=== PATIENT | female | born 1960 | race African-American/Black ===

== ENCOUNTER 2019-09-19 01:08 | Inpatient (IN) | payer MEDICARE ==
[~2019-09-19] VITALS: Ht 167.6 cm; Wt 105.3 kg
[2019-09-19] MEDS ORDERED: SODIUM CHLORIDE 0.9% 1,000 ML IV ONE (01:11)
[2019-09-19] MEDS ORDERED: NALOXONE HCL 0.4 MG/ML 1ML VIAL IV PRN (01:15)
[2019-09-19 01:29] LABS: BASOPHILS % 0.5 % (0.0-2.0); EOSINOPHILS % 0.1 % (0.0-5.0); HEMATOCRIT. 46.4 % (36.0-48.0); HEMOGLOBIN. 15.5 g/dL (12.0-16.0); LYMPHOCYTES % 13.7 % (20.0-50.0); MEAN CORPUSCULAR HEMOGLOBIN 32.8 pg (28.0-32.0); MEAN CORPUSCULAR VOLUME 98.5 fL (81.0-99.0); MEAN PLATELET VOLUME 8.5 fl (7.4-10.4); MONOCYTES % 8.3 % (2.0-8.0); NEUTROPHILS % 77.4 % (40.0-76.0); PLATELET 221 x1000/uL (130-400); RED BLOOD CELL COUNT 4.71 mill/uL (4.2-5.4); RED CELL DISTRIBUTION WIDTH 13.6 % (11.6-14.6)
[2019-09-19] MEDS ORDERED: SODIUM CHLORIDE 0.9% 1000ML BAG (SEPSIS BOLUS) IV ONE (01:45)
[2019-09-19] MEDS ORDERED: CALCIUM CHLORIDE 1GM/10ML SYR IV ONE (01:45)
[2019-09-19] MEDS ORDERED: LACTULOSE 20G/30ML UDC PO NR (01:45)
[2019-09-19 01:58] LABS: CLARITY URINE CLOUDY (CLEAR); COLOR URINE DARK YELLOW (YELLOW); KETONES URINE TRACE (NEGATIVE); LEUKOCYTE ESTERASE URINE NEGATIVE (NEGATIVE); NITRITE URINE NEGATIVE (NEGATIVE); OCCULT BLOOD URINE NEGATIVE (NEGATIVE); PROTEIN URINE TRACE (NEGATIVE); SPECIFIC GRAVITY URINE 1.025 (1.005-1.030); UROBILINOGEN URINE 0.2 E.U./dL (0.2-1.0)
[2019-09-19 02:03] LABS: CHLORIDE 103 mEq/L (98-107)
[2019-09-19 02:08] LABS: ETHANOL BLOOD < 10 mg/dL
[2019-09-19] MEDS ORDERED: NALOXONE HCL 1 MG/ML 2ML VIAL IV ONE ×2 (02:15→03:30)
[2019-09-19 02:23] LABS: *AMPHETAMINES SCREEN URINE NEGATIVE (NEGATIVE); *BARBITURATES SCREEN URINE NEGATIVE (NEGATIVE); *BENZODIAZEPINES SCREEN URINE NEGATIVE (NEGATIVE); *COCAINE SCREEN URINE NEGATIVE (NEGATIVE)
[2019-09-19 02:24] LABS: CANNABINOID URINE SCREEN NEGATIVE (NEGATIVE); METHADONE URINE SCREEN NEGATIVE (NEGATIVE); PHENCYCLIDINE URINE SCREEN NEGATIVE (NEGATIVE)
[2019-09-19] MEDS ORDERED: VANCOMYCIN 1 G PREMIX 200 ML IV NR (02:45)
[2019-09-19] MEDS ORDERED: PIPERACILLIN/TAZOBACTAM 3.375GM/50ML PREMIX IV ONE (02:45)
[2019-09-19] MEDS ORDERED: ASPIRIN 325MG EC TABLET PO NR (02:45)
[2019-09-19] MEDS ORDERED: SODIUM CHLORIDE 0.9% IV PRN ×2 (02:45→02:50)
[2019-09-19] MEDS ORDERED: NALOXONE IV PRN ×2 (02:45→02:50)
[2019-09-19] MEDS ORDERED: PIPERACILLIN/TAZ 2.25G PREMIX 50 ML IV NR (03:00)
[2019-09-19 03:49] LABS: CREATINE KINASE 6230 IU/L (26-192)
[2019-09-19] MEDS ORDERED: SODIUM CHLORIDE 0.9% 1,000 ML IV SCH ×2 (15:45→19:00)
[2019-09-19] MEDS ORDERED: ONDANSETRON HCL 4MG/2ML INJ IV PRN (15:45)
[2019-09-19 16:50] LABS: OPIATES URINE SCREEN PRESUMTIVE POSITIVE (NEGATIVE)
[2019-09-19 20:20] LABS: BASOPHILS % 0.4 % (0.0-2.0); EOSINOPHILS % 0.4 % (0.0-5.0); HEMATOCRIT. 41.5 % (36.0-48.0); HEMOGLOBIN. 13.9 g/dL (12.0-16.0); LYMPHOCYTES % 10.3 % (20.0-50.0); MEAN CORPUSCULAR HEMOGLOBIN 32.9 pg (28.0-32.0); MEAN CORPUSCULAR VOLUME 98.4 fL (81.0-99.0); MEAN PLATELET VOLUME 8.6 fl (7.4-10.4); MONOCYTES % 8.5 % (2.0-8.0); NEUTROPHILS % 80.4 % (40.0-76.0); PLATELET 171 x1000/uL (130-400); RED BLOOD CELL COUNT 4.22 mill/uL (4.2-5.4); RED CELL DISTRIBUTION WIDTH 13.7 % (11.6-14.6)
[2019-09-19 20:22] LABS: CHLORIDE 116 mEq/L (98-107)
[2019-09-19 20:28] LABS: PHOSPHORUS 1.5 mg/dL (2.5-4.9)
[2019-09-19 20:57] LABS: CREATINE KINASE 4847 IU/L (26-192)
[2019-09-19] MEDS: DEXT 5%/0.45% NACL KCL 20MEQ/L 1,000 ML IV SCH (23:20)
[2019-09-20] VITALS (12 sets, daily range): BP systolic 133–159; BP diastolic 68–94
[2019-09-20 04:48] LABS: BASOPHILS % 0.4 % (0.0-2.0); EOSINOPHILS % 0.7 % (0.0-5.0); HEMATOCRIT. 39.2 % (36.0-48.0); HEMOGLOBIN. 13.3 g/dL (12.0-16.0); LYMPHOCYTES % 18.1 % (20.0-50.0); MEAN CORPUSCULAR HEMOGLOBIN 33.2 pg (28.0-32.0); MEAN CORPUSCULAR VOLUME 97.9 fL (81.0-99.0); MEAN PLATELET VOLUME 8.8 fl (7.4-10.4); MONOCYTES % 6.8 % (2.0-8.0); PLATELET 168 x1000/uL (130-400); RED BLOOD CELL COUNT 4.01 mill/uL (4.2-5.4); RED CELL DISTRIBUTION WIDTH 13.6 % (11.6-14.6)
[2019-09-20 04:54] LABS: CHLORIDE 117 mEq/L (98-107)
[2019-09-20 05:00] LABS: PHOSPHORUS 1.3 mg/dL (2.5-4.9)
[2019-09-20 05:14] LABS: CREATINE KINASE 3478 IU/L (26-192)
[2019-09-20] MEDS: ACETAMINOPHEN 325MG TABLET PO PRN ×2 (10:47→18:55)
[2019-09-20] MEDS: DEXT 5%/0.45% NACL KCL 20MEQ/L 1,000 ML IV SCH ×2 (10:48→15:59)
[2019-09-20 12:43] LABS: HEPATITIS B SURFACE ANTIGEN NEGATIVE
[2019-09-20] MEDS ORDERED: POTASSIUM PHOS,M-BASIC-D-BASIC 20 MMOL in DEXT 5% WATER 243.3333 ML IV NR (13:00)
[2019-09-20 13:10] LABS: HEPATITIS A AB IGM NEGATIVE (NEGATIVE)
[2019-09-20] MEDS: CLONIDINE 0.1MG TABLET PO PRN (19:08)
[2019-09-20] MEDS: AMLODIPINE 10MG TABLET PO SCH (20:18)
[2019-09-20] MEDS ORDERED: HYDRALAZINE 20MG/ML VIAL IV PRN (22:30)
[2019-09-21] VITALS (11 sets, daily range): BP systolic 133–164; BP diastolic 78–104
[2019-09-21] MEDS: CLONIDINE 0.1MG TABLET PO PRN (02:48)
[2019-09-21] MEDS: DEXT 5%/0.45% NACL KCL 20MEQ/L 1,000 ML IV SCH ×2 (02:49→05:33)
[2019-09-21 07:14] LABS: BASOPHILS % 0.5 % (0.0-2.0); EOSINOPHILS % 1.2 % (0.0-5.0); HEMATOCRIT. 41.3 % (36.0-48.0); HEMOGLOBIN. 13.9 g/dL (12.0-16.0); LYMPHOCYTES % 29.3 % (20.0-50.0); MEAN CORPUSCULAR HEMOGLOBIN 32.6 pg (28.0-32.0); MEAN CORPUSCULAR VOLUME 97.2 fL (81.0-99.0); MONOCYTES % 6.5 % (2.0-8.0); NEUTROPHILS % 62.5 % (40.0-76.0); PLATELET 177 x1000/uL (130-400); RED BLOOD CELL COUNT 4.25 mill/uL (4.2-5.4); RED CELL DISTRIBUTION WIDTH 13.4 % (11.6-14.6)
[2019-09-21 07:21] LABS: CHLORIDE 113 mEq/L (98-107)
[2019-09-21 07:29] LABS: PHOSPHORUS 1.7 mg/dL (2.5-4.9)
[2019-09-21] MEDS: AMLODIPINE 10MG TABLET PO SCH (08:16)
[2019-09-21] MEDS ORDERED: HYDRALAZINE HCL 50MG TABLET PO SCH (09:00)
[2019-09-21] MEDS ORDERED: HYDR-4135 PO (10:56)
[2019-09-21] MEDS ORDERED: AMLO10TA80 MT (10:57)
[2019-09-21] MEDS ORDERED: POTASSIUM PHOS,M-BASIC-D-BASIC 30 MMOL in SODIUM CHLORIDE 0.9% 500 ML IV SCH (11:00)
[2019-09-21] MEDS ORDERED: POTASSIUM CHLORIDE 20MEQ TABLET SR PO NR (12:00)
[2019-09-21 17:37] LABS: BASOPHILS % 0.6 % (0.0-2.0); EOSINOPHILS % 0.4 % (0.0-5.0); HEMATOCRIT. 46.1 % (36.0-48.0); HEMOGLOBIN. 15.3 g/dL (12.0-16.0); LYMPHOCYTES % 26.9 % (20.0-50.0); MEAN CORPUSCULAR HEMOGLOBIN 32.4 pg (28.0-32.0); MEAN CORPUSCULAR VOLUME 97.6 fL (81.0-99.0); MEAN PLATELET VOLUME 8.7 fl (7.4-10.4); MONOCYTES % 5.5 % (2.0-8.0); NEUTROPHILS % 66.6 % (40.0-76.0); PLATELET 188 x1000/uL (130-400); RED BLOOD CELL COUNT 4.72 mill/uL (4.2-5.4); RED CELL DISTRIBUTION WIDTH 13.5 % (11.6-14.6)
[2019-09-21 17:43] LABS: CHLORIDE 112 mEq/L (98-107)
[2019-09-21 17:52] LABS: PHOSPHORUS 2.9 mg/dL (2.5-4.9)
== END 2019-09-21 18:28 | disposition home or self-care (01) | DRG 917 ==
LOC: ER 01:53 → 5EST 02:43 → EDBEDREQSVC 10:52 → ENRESERV 23:56 → 5EST 09-20 03:01
PROVIDERS: ADMIT Internal Medicine; ATTEND Internal Medicine
DX: T40.2X1A Poisoning by other opioids, accidental (unintentional), initial encounter (principal); G92 Toxic encephalopathy; M62.82 Rhabdomyolysis; N17.9 Acute kidney failure, unspecified; E87.1 Hypo-osmolality and hyponatremia; E87.2 Acidosis; I27.20 Pulmonary hypertension, unspecified; N18.9 Chronic kidney disease, unspecified; F17.210 Nicotine dependence, cigarettes, uncomplicated; D72.829 Elevated white blood cell count, unspecified; F10.20 Alcohol dependence, uncomplicated; Y90.9 Presence of alcohol in blood, level not specified; G89.4 Chronic pain syndrome; E83.39 Other disorders of phosphorus metabolism; I12.9 Hypertensive chronic kidney disease with stage 1 through stage 4 chronic kidney disease, or unspecified chronic kidney disease; E66.9 Obesity, unspecified; Z68.37 Body mass index [BMI] 37.0-37.9, adult; Z98.84 Bariatric surgery status; Y92.89 Other specified places as the place of occurrence of the external cause; Z79.891 Long term (current) use of opiate analgesic; Z87.81 Personal history of (healed) traumatic fracture; Z71.89 Other specified counseling
CPT/HCPCS: 36415; 71045; 76770; 80048; 80053; 80305; 80307; 80320; 80329; 81003; 82140; 82550; 82962; 83036; 83605; 83735; 83880; 84100; 84145; 84443; 84484; 85025; 86705; 86709; 86803; 87340; 93005; 93306; 93970; 99291; 99292; J0360; J2310; J2543; J3370; J3490; J7030; J7040; J7060; G0480